=== PATIENT | male | born 1950 | race Caucasian/White ===

== ENCOUNTER 2017-09-07 17:35 | Emergency (ER) | payer MEDICARE, OTHER ==
--- NOTE | 2017-09-07 18:37 | EDM.PDOC ---
ED HPI GENERAL MEDICAL PROBLEM - General Chief Complaint: General Stated Complaint: POSSIBLE BLOOD CLOT LT LEG Time Seen by Provider: 09/07/17 18:35 Source of Information: Reports: Patient History Limitations: Reports: No Limitations - History of Present Illness INITIAL COMMENTS - FREE TEXT/NARRATIVE: HISTORY AND PHYSICAL: []67-year-old gentleman presenting with pain in the left lower leg History of Present Illness: []History of varicose veins For 5 days has been on the road traveling denies any shortness of breath no chest pain No Cold or flu symptoms no other complaints Review of Systems: As per history of present illness and below otherwise all systems reviewed and negative. Past medical history: As per history of present illness and as reviewed below otherwise noncontributory. Surgical history: As per history of present illness and as reviewed below otherwise noncontributory. Social history: No reported history of drug or alcohol abuse. Family history: As per history of present illness and as reviewed below otherwise noncontributory. Physical exam: Alert and oriented man answering questions appropriately in full sentences without shortness of breath he does not not have any pain while he is sitting on the cart HEENT: Atraumatic, normocehpalic, pupils reactive, negative for conjunctival pallor or scleral icterus, mucous membranes moist, throat clear, neck supple, nontender, trachea midline. Lungs: Clear to auscultation, breath sounds equal bilaterally, chest non tender. Heart: S1S2, regular, negative for clicks, rubs, or JVD. Abdomen: Soft, nondistended, nontender. Negative for masses or hepatossplenmegaly. Negative for costovertebral tenderness. Pelvis: Stable nontender. Genitourinary: Deferred. Rectal: Deferred Extremities: Atraumatic, negative for cords or calf pain. hot varicose vein noted medially on his left lower leg Neurovascular unremarkable. Neuro: Awake, alert, oriented. Cranial nerves II through XII unremarkable. Cerebellum unremarkable. Motor and sensory unremarkable throughout. Exam nonfocal. Discussed with the patient that he is ultrasound is negative for a deep vein thrombosis Diagnostics: []Ultrasound venous Doppler Therapeutics: [] Impression: []Superficial thrombophlebitis Plan: [] Discharge home Keflex antibiotic 3 times daily 1 week Follow up with your primary care provider Return to the emergency room should you have sudden sharp pain in your chest or difficulty breathing [id number] Tylenol and Motrin for pain Moist heat may be beneficial Definitive disposition and diagnosis as appropriate pending reevaluation and review of above. Onset: Gradual Duration: Day(s): (5) Location: Reports: Lower Extremity, Left Quality: Reports: Throbbing Severity: Moderate Improves with: Reports: None Worsens with: Reports: None Associated Symptoms: Reports: No Other Symptoms Left Lower Leg Pain Score (Numeric/FACES): 6 - Related Data Home Meds: Home Meds Aspirin 81 mg PO DAILY 09/07/17 [History] Cephalexin [Keflex] 500 mg PO Q8H #21 cap 09/07/17 [Rx] Insulin Glarg,Human.Rec.Analog [Lantus] 25 units SQ DAILY 09/07/17 [History] Liraglutide [Victoza] 1.2 mg SQ DAILY 09/07/17 [History] Metoprolol Succinate [Toprol XL] 25 mg PO DAILY 09/07/17 [History] Ubidecarenone [Co Q-10] 100 mg PO DAILY 09/07/17 [History] atorvaSTATin [Lipitor] 25 mg PO DAILY 09/07/17 [History] glipiZIDE [Glucotrol XL] 5 mg PO DAILY 09/07/17 [History] metFORMIN [Glucophage XR] 500 mg PO DAILY 09/07/17 [History] traZODone HCl [Trazodone HCl] 50 mg PO DAILY 09/07/17 [History] ED ROS GENERAL - Review of Systems Review Of Systems: ROS reveals no pertinent complaints other than HPI. ED EXAM, GENERAL - Physical Exam Exam: See Below (See dictation) Course - Vital Signs Last Recorded V/S: Last Vital Signs Temp 36.2 C 09/07/17 18:31 Pulse 73 09/07/17 18:31 Resp 20 09/07/17 18:31 BP 166/79 H 09/07/17 18:31 Pulse Ox 97 09/07/17 18:31 - Orders/Labs/Meds Orders: Active Orders 24 hr Category Date Time Status Venous Doppler Lwr Ext Lt [US] Stat Exams 09/07/17 18:36 Taken Departure - Departure Time of Disposition: 20:28 Disposition: Home, Self-Care 01 Condition: Good Clinical Impression: Superficial thrombophlebitis of left leg - Discharge Information Prescriptions: Cephalexin [Keflex] 500 mg PO Q8H #21 cap Referrals: PCP,None [Primary Care Provider] - Forms: ED Department Discharge Additional Instructions: The following information is given to patients seen in the emergency department who are being discharged to home. This information is to outline your options for follow-up care. We provide all patients seen in our emergency department with a follow-up referral. The need for follow-up, as well as the timing and circumstances, are variable depending upon the specifics of your emergency department visit. If you don't have a primary care physician on staff, we will provide you with a referral. We always advise you to contact your personal physician following an emergency department visit to inform them of the circumstance of the visit and for follow-up with them and/or the need for any referrals to a consulting specialist. The emergency department will also refer you to a specialist when appropriate. This referral assures that you have the opportunity for followup care with a specialist. All of these measure are taken in an effort to provide you with optimal care, which includes your followup. Under all circumstances we always encourage you to contact your private physician who remains a resource for coordinating your care. When calling for followup care, please make the office aware that this follow-up is from your recent emergency room visit. If for any reason you are refused follow-up, please contact the [facility] emergency department at and asked to speak to the emergency department charge nurse. You have a superficial thrombophlebitis Discharge home Keflex antibiotic 3 times daily 1 week Follow up with your primary care provider Return to the emergency room should you have sudden sharp pain in your chest or difficulty breathing [id number] Tylenol and Motrin for pain Moist heat may be beneficial - My Orders Last 24 Hours: My Active Orders 09/07/17 18:36 Venous Doppler Lwr Ext Lt [US] Stat - Assessment/Plan Last 24 Hours: My Active Orders 09/07/17 18:36 Venous Doppler Lwr Ext Lt [US] Stat
--- NOTE | 2017-09-09 18:12 | US ---
EXAM DATE: 09/07/17 PATIENT'S AGE: 67 Patient: NATHAN JOY Facility: [place], [place] Site . Site : [id number] Study: US Extremity Left [id number] 8:11:17 PM Ordering Physician: Doctor Carlson Final Report: INDICATION: Pain and redness within the superior medial left calf. COMPARISON: None. TECHNIQUE: A compression venous ultrasound exam was performed of the left lower extremity using 2D wiley-scale imaging, color Doppler and spectral Doppler analysis. FINDINGS: Sonographic imaging of the left lower extremity demonstrates normal compressibility and color Doppler venous blood flow within the common and deep femoral veins. Within the thigh, the femoral vein is patent and compressible. At a lower level, the popliteal, peroneal and posterior tibial veins also show normal compressibility and color Doppler venous blood flow. The greater saphenous vein is ectatic and contains several varicosities many of which are thrombosed. This would correlate with the area of tenderness. Limited imaging of the contralateral groin demonstrates a normal spectral waveform and color Doppler venous blood flow within the right common femoral vein. IMPRESSION: Superficial thrombophlebitis evident within the left greater saphenous vein. No evidence of deep vein thrombosis within the left lower extremity. Dictated by Sagar Haro MD @ Sep 07 2017 8:18PM (Electronic Signature) Report Signed by Proxy. JULIETTE
== END 2017-09-07 20:48 | disposition home or self-care (01) ==
LOC: MW.ED 17:35
DX: I80.02 Phlebitis and thrombophlebitis of superficial vessels of left lower extremity (principal); Z79.82 Long term (current) use of aspirin; Z79.4 Long term (current) use of insulin; Z79.899 Other long term (current) drug therapy
CPT/HCPCS: 93971-26-LT; 93971-LT; 99282; 99283